=== PATIENT | female | born 1980 | race Hispanic/Latino ===

== ENCOUNTER 2019-03-21 08:01 | Outpatient (CLI) | payer OTHER ==
--- NOTE | 2019-03-21 08:37 | ULT ---
US Thyroid STANDARD: 03/21/2019 12:00 AM CLINICAL INDICATION: Family history of malignant neoplasm of the thyroid. COMPARISON: None. FINDINGS: Right and left thyroid lobes are normal in size and echotexture. The right thyroid lobe measures 4.4 and the left thyroid lobe measures 3.8. Solitary well-circumscribed isoechoic right thyroid nodule that is wider than tall without suspicious microcalcifications. This measures 1.3 cm in greatest dimension. No cervical lymphadenopathy is noted. IMPRESSION: Right thyroid nodule. TIRADS category 3 ; a follow-up left TIRADS category 3 lesions is recommended if the nodule is 1.5 cm or greater. Therefore, no follow-up of this nodule is necessary per recommendations.
== END 2019-03-21 08:02 | disposition home or self-care (01) ==
LOC: BICULT 08:01
PROVIDERS: ATTEND Internal Medicine Gastroenterology
DX: Z15.09 Genetic susceptibility to other malignant neoplasm (principal); K63.5 Polyp of colon; Z80.8 Family history of malignant neoplasm of other organs or systems; E04.1 Nontoxic single thyroid nodule
CPT/HCPCS: 76536

== ENCOUNTER 2019-05-11 08:11 | Outpatient (CLI) | payer OTHER ==
--- NOTE | 2019-05-11 08:51 | MMO ---
Bilateral MAMMO Bilat Screen [facility]. CLINICAL HISTORY: Patient is 39 years old and is seen for screening. The patient has the following family history of breast cancer: 2 maternal aunts. The patient has no personal history of cancer. VIEWS: The views performed were: bilateral craniocaudal with tomosynthesis and bilateral mediolateral oblique with tomosynthesis. MAMMOGRAM FINDINGS: The breasts are heterogeneously dense, which could obscure a lesion on mammography. There are no suspicious masses, suspicious calcifications, or new areas of architectural distortion. IMPRESSION: THERE IS NO MAMMOGRAPHIC EVIDENCE OF MALIGNANCY. A ROUTINE FOLLOW-UP MAMMOGRAM AT AGE 42 IS RECOMMENDED. THE RESULTS OF THIS EXAM WERE SENT TO THE PATIENT. ACR BI-RADS Category 1 - Negative MAMMOGRAPHY NOTE: 1. A negative mammogram report should not delay a biopsy if a dominant of clinically suspicious mass is present. 2. Approximately 10% to 15% of breast cancers are not detected by mammography. 3. Adenosis and dense breasts may obscure an underlying neoplasm. Reported by: PEDRO KIRK MD Electonically Signed: [id number]
== END 2019-05-11 08:12 | disposition home or self-care (01) ==
LOC: BICMAMMO 08:11
PROVIDERS: ATTEND Obstetrics & Gynecology
DX: Z12.31 Encounter for screening mammogram for malignant neoplasm of breast (principal); Z80.3 Family history of malignant neoplasm of breast
CPT/HCPCS: 77063; 77067

== ENCOUNTER 2019-09-05 08:06 | Outpatient (CLI) | payer OTHER ==
--- NOTE | 2019-09-05 08:41 | ULT ---
THYROID ULTRASOUND INDICATION: Thyroid mass TECHNIQUE: Grayscale and color Doppler images were obtained of the thyroid gland. COMPARISON: March 21, 2019 FINDINGS: Right thyroid lobe: The right thyroid lobe measures 1.5 x 4.7 x 1.6 cm. Solid hyperechoic, well-circu mscribed nodule within the mid right thyroid lobe is slightly larger measuring 1.5 x 1.0 x 1.2 cm. This nodule previously measured 1.3 x 1.0 x 1.1 cm on the prior exam. Thyroid isthmus: The thyroid isthmus measures 0.38 cm. Left thyroid lobe: The left thyroid lobe measures 1.2 x 4.3 x 1.3 cm. IMPRESSION: 1. TIRADS 3 lesion in the right mid thyroid lobe. This lesion is slightly larger in size than the annamarie or examination dated March 21, 2019. A follow-up in one year is recommended.
== END 2019-09-05 08:07 | disposition home or self-care (01) ==
LOC: BICULT 08:06
PROVIDERS: ATTEND Otolaryngology Plastic Surgery within the Head & Neck
DX: E04.1 Nontoxic single thyroid nodule (principal)
CPT/HCPCS: 76536